=== PATIENT | male | born 1975 | race Caucasian/White ===

== ENCOUNTER 2019-07-19 11:58 | Emergency (ER) | payer OTHER ==
[~2019-07-19] VITALS: Ht 177.8 cm; Wt 85.7 kg
[2019-07-19 12:01] VITALS: BP 123/74
--- NOTE | 2019-07-19 12:21 | NUR ---
44YO M C/O CHEST PAIN WHICH STARTED 10 DAYS AGO. PER PT, HE WAS ON THE AIRPLANE WHEN HE FELT 8/10 SQUEEZING PAIN IN THE MIDDLE OF HIS CHEST. PT UNABLE TO RECALL ANY OTHER SYMPTOMS AT THAT TIME. SINCE THAT INCIDENT, CP HAS BEEN ON AND OFF, WITH MILDER PAIN INTENSITY. PT WENT TO URGENT CARE TODAY WHERE ABNORMAL EKG WAS NOTED, HENCE SENT TO ER. PT RESTING COMFORTABLY IN BED. ERMD MADE AWARE. NO PMH NO MEDS NKA
[2019-07-19 13:24] LABS: BASOPHILS % (AUTO) 0.8 % (0.0-2.0); EOSINOPHILS # (AUTO) 0.2 K/uL (0-0.4); EOSINOPHILS % (AUTO) 2.7 % (0.0-4.0); HEMOGLOBIN 14.9 g/dL (12.0-18.0); LYMPHOCYTES # (AUTO) 1.4 K/uL (2.0-11.5); LYMPHOCYTES % (AUTO) 22.7 % (20.5-51.1); MEAN CORPUSCULAR HEMOGLOBIN 30 pg (27-31); MEAN CORPUSCULAR HGB CONC 34 g/dL (33-37); MEAN CORPUSCULAR VOLUME 89.1 fL (80-94); MONOCYTES # (AUTO) 0.5 K/uL (0.8-1.0); MONOCYTES % (AUTO) 8.1 % (1.7-9.3); NEUTROPHILS # (AUTO) 3.9 K/uL (1.8-7.7); NEUTROPHILS % (AUTO) 65.7 % (42.2-75.2); PLATELET COUNT (AUTO) 196 K/uL (140-450); RED BLOOD CELL COUNT(AUTO) 4.94 MIL/uL (4.20-6.10); RED CELL DISTRIBUTION WIDTH 13.6 % (11.6-13.7)
[2019-07-19 13:41] LABS: ANION GAP 8.6 (8-16); CARBON DIOXIDE 29.9 mmol/L (21-32); CREATININE 1.3 mg/dL (0.6-1.3); POTASSIUM 4.5 mmol/L (3.5-5.1); TOTAL BILIRUBIN 0.7 mg/dL (0.0-1.0)
[2019-07-19 14:04] LABS: ALBUMIN 3.6 g/dL (3.4-5.0)
[2019-07-19 14:38] VITALS: BP 121/70
== END 2019-07-19 14:39 | disposition home or self-care (01) ==
LOC: MED 11:58
DX: R07.89 Other chest pain (principal)
CPT/HCPCS: 36415; 71045; 80053; 83690; 83880; 84484; 85025; 93005; 99285; Q0092

== ENCOUNTER 2019-07-25 08:03 | Inpatient (IN) | payer OTHER ==
[~2019-07-25] VITALS: Ht 182.9 cm; Wt 85.3 kg
--- NOTE | 2019-07-25 08:15 | NUR ---
PT AMBULATED TO ER BED 7
[2019-07-25 08:17] VITALS: BP 143/93
--- NOTE | 2019-07-25 08:21 | NUR ---
44 Y/O MALE C/O CHEST PAIN RADIATING TO BACK AND ARMS X 45 MIN. STATES NAUSEA, DENIES V/D. 8/10 PRESSURE AT THIS TIME. DENIES SOB. STATES HE WAS SEEN IN ER LAST WEEK FOR SAME CHEST PAIN, WAS GIVEN MEDICATION FOR ACID REFLUX, HAS BEEN TAKING MEDICATION WITH NO RELIEF. RR EVEN AND UNLABORED. PT PLACED ON MONITOR. VSS. MEDHX: DENIES ALLERGIES: NKA
[2019-07-25] MEDS ORDERED: NITROGLYCERIN 2% 1 GM PKT TP ONE ×2 (08:30)
[2019-07-25] MEDS ORDERED: MORPHINE SULFATE 2 MG/ML SYR IVP ONE (08:30)
[2019-07-25] MEDS ORDERED: METOPROLOL 25 MG TAB PO ONE (08:30)
[2019-07-25] MEDS ORDERED: ASPIRIN 325 MG TAB PO ONE (08:30)
[2019-07-25] MEDS ORDERED: FAMOTIDINE 20 MG/2 ML VIAL IVP ONE (08:30)
[2019-07-25] MEDS ORDERED: LORazepam 2 MG/ML VIAL IVP ONE (08:30)
--- NOTE | 2019-07-25 08:33 | NUR ---
ERMD BEDSIDE EVALUATING PT
--- NOTE | 2019-07-25 08:46 | NUR ---
XRAY AT BEDSIDE
[2019-07-25 09:06] LABS: BASOPHILS % (AUTO) 0.4 % (0.0-2.0); EOSINOPHILS # (AUTO) 0.1 K/uL (0-0.4); EOSINOPHILS % (AUTO) 0.7 % (0.0-4.0); HEMATOCRIT 46.7 % (36-52); HEMOGLOBIN 16.2 g/dL (12.0-18.0); LYMPHOCYTES # (AUTO) 1.1 K/uL (2.0-11.5); LYMPHOCYTES % (AUTO) 13.6 % (20.5-51.1); MEAN CORPUSCULAR HEMOGLOBIN 31 pg (27-31); MEAN CORPUSCULAR HGB CONC 35 g/dL (33-37); MEAN CORPUSCULAR VOLUME 89.1 fL (80-94); MONOCYTES # (AUTO) 0.7 K/uL (0.8-1.0); MONOCYTES % (AUTO) 8.7 % (1.7-9.3); NEUTROPHILS # (AUTO) 6.2 K/uL (1.8-7.7); NEUTROPHILS % (AUTO) 76.6 % (42.2-75.2); PLATELET COUNT (AUTO) 203 K/uL (140-450); RED BLOOD CELL COUNT(AUTO) 5.24 MIL/uL (4.20-6.10); RED CELL DISTRIBUTION WIDTH 13.7 % (11.6-13.7); WHITE BLOOD COUNT (AUTO) 8.1 K/uL (4.8-10.8)
[2019-07-25 09:29] LABS: PROTHROMBIN TIME 11.1 secs (10.8-13.4)
[2019-07-25 09:30] LABS: MAGNESIUM 1.7 mg/dL (1.8-2.4)
[2019-07-25 09:32] LABS: ALBUMIN 4.1 g/dL (3.4-5.0); ANION GAP 9.7 (8-16); CARBON DIOXIDE 29.6 mmol/L (21-32); CREATININE 1.1 mg/dL (0.6-1.3); POTASSIUM 4.3 mmol/L (3.5-5.1); TOTAL BILIRUBIN 0.6 mg/dL (0.0-1.0)
--- NOTE | 2019-07-25 09:44 | NUR ---
PT STATES UNABLE TO GIVE URINE SAMPLE AT THIS TIME. RESTING WITH EYES CLOSED, AROUSABLE TO NAME, REMAINS ON MONITOR. WILL CONTINUE TO MONITOR.
[2019-07-25 09:47] LABS: D-DIMER < 100 ng/ml (0-400)
[2019-07-25] MEDS ORDERED: ONDANSETRON 4 MG/2 ML VIAL IVP PRN (10:55)
[2019-07-25] MEDS ORDERED: ACETAMINOPHEN 325 MG TAB PO PRN (10:55)
[2019-07-25] MEDS ORDERED: NITROGLYCERIN 0.4 MG TAB SL PRN (11:05)
[2019-07-25 11:15] LABS: OPIATE, URINE POSITIVE ng/mL (NEG <=2000)
[2019-07-25 11:16] LABS: BARBITURATE, URINE NEGATIVE ng/ml (NEG <=200); BENZODIAZEPINE, URINE POSITIVE ng/mL (NEG <=200); CANNABINOID, URINE NEGATIVE ng/mL (NEG <=50); COCAINE, URINE NEGATIVE ng/mL (NEG <=300); PHENCYCLIDINE SCREEN,URINE NEGATIVE ng/mL (NEG <=25)
[2019-07-25] MEDS: NACL 0.9% 1,000 ML IV SCH (11:20)
[2019-07-25] MEDS ORDERED: MAGNESIUM OXIDE 400 MG TAB PO SCH (11:30)
[2019-07-25 11:59] LABS: FREE T4 (FREE THYROXINE) 0.98 ng/dL (0.76-1.46); PHOSPHORUS 2.3 mg/dL (2.5-4.9); THYROID STIMULATING HORMONE 1.74 uIU/mL (0.34-3.74)
--- NOTE | 2019-07-25 12:00 | NUR ---
PATIENT SITTING UPRIGHT R/R EQUAL, AND UNLABORED, CALM AND PLEASANT. WILL CONTINUE TO MONITOR.
--- NOTE | 2019-07-25 13:00 | NUR ---
PT SITTING UPRIGHT AWAKE AND ALERT ON CELLPHONE. RR EVEN AND UNLABORED. VSS. WILL CONTINUE TO MONITOR
--- NOTE | 2019-07-25 13:09 | NUR ---
PT ABLE TO AMBULATE TO BATHROOM. VSS. ALL NEEDS MET AT THIS TIME.
--- NOTE | 2019-07-25 13:40 | NUR ---
PT AWAKE AND RESTING ON BED. DENIED PAIN, SOB, AND DIZZINESS. NO SIGNS OF DISTRESS NOTED. TELE MONITOR ATTACHED. SAFETY MEASURES IN PLACE. Addendum: 07/25/19 at 1916 by Alexandra Todd RN WRONG TIME.
[2019-07-25 13:55] VITALS: BP 114/72
--- NOTE | 2019-07-25 13:55 | NUR ---
Patient will be admitted to care of [facility]. Admited to TELE. Will go to room 124A. Belongings list completed. Report to HEMANTH ALBERTS.
--- NOTE | 2019-07-25 13:55 | NUR ---
PT ARRIVED UNIT VIA GURNEY. PT IS AAOX4. RESPIRATION EVEN AND UNLABORED ON 3LPM VIA [place]. DENIED PAIN, SOB, AND DIZZINESS. NO SIGNS OF DISTRESS NOTED. IV ON RAC 22G, AND LAC 20, CLEAN AND INTACT, RAC INFUSING PER MD ORDER 10 ML/HR OF NS. SKIN CLEAN AND DRY. PT IS CONTINENT AND ABLE TO AMBULATE WITH STEADY GAIT. VITAL SIGNS TAKEN AND MRSA NARES COLLECTED. EXPLAINED TO PT THAT URINE SAMPLE IS NEEDED AND CUP PROVIDED. ORIENTED PT TO THE ROOM, INSTRUCTED PT ON HOW TO USE THE CALL LIGHT, LIGHTS, BED REMOTE, TV, BATHROOM, PT VERBALIZED UNDERSTANDING. PT IS SITTING UP ON BED RESTING. TELE MONITOR ATTACHED. SAFETY MEASURES IN PLACE. INSTRUCTED PT TO USE THE CALL LIGHT FOR ANY ASSISTANCE AND PT AWARE.
--- NOTE | 2019-07-25 15:40 | NUR ---
PT AWAKE AND RESTING ON BED. DENIED PAIN, SOB, AND DIZZINESS. NO SIGNS OF DISTRESS NOTED. TELE MONITOR ATTACHED. SAFETY MEASURES IN PLACE.
[2019-07-25 16:00] VITALS: BP 107/66
--- NOTE | 2019-07-25 17:00 | NUR ---
PT COMPLAINED THAT HE HAS MILD HEADACHE LIKE 2/10, ADMINISTERED ACETAMINOPHEN PER MD ORDER, MED EDUCATION PROVIDED AND PT TOLERATED WELL. NO SIGNS OF DISTRESS NOTED. TELE MONITOR ATTACHED. SAFETY MEASURES IN PLACE. INSTRUCTED PT TO USE THE CALL LIGHT FOR ANY ASSISTANCE AND PT AWARE.
--- NOTE | 2019-07-25 19:15 | NUR ---
ENDORSED PT AT BEDSIDE TO STRETCHER LEVELER OPERATOR NURSE BERTHA FOR CONTINUITY OF CARE. PT IS AWAKE AND RESTING ON BED AT THIS TIME. NO SIGNS OF DISTRESS NOTED. TELE MONITOR ATTACHED. PT IS IN STABLE CONDITION. SAFETY MEASURES IN PLACE. URINE SAMPLE COLLECTED IN ER.
--- NOTE | 2019-07-25 19:45 | NUR ---
A/A/O X4. IVF NS @ 10ML/HR INFUSING WELL C/O H/A .EXPLAINED IT'S TOO SOON TO HAVE ANOTHER DOSE;VERBALIZED UNDERSTANDING OF THE EXPLANATION GIVEN.
[2019-07-25 20:00] VITALS: BP 92/55
[2019-07-25] MEDS: METOPROLOL 25 MG TAB PO SCH (21:00)
[2019-07-25] MEDS ORDERED: ATORVASTATIN 20 MG TAB PO SCH (21:00)
[2019-07-25] MEDS: DOCUSATE SODIUM 100 MG GELCAP PO SCH (21:04)
[2019-07-25 21:54] LABS: APPEARANCE,URINE CLEAR (CLEAR); BILIRUBIN,URINE NEGATIVE (NEGATIVE); BLOOD, URINE NEGATIVE (NEGATIVE); COLOR,URINE YELLOW (YELLOW); LEUKOCYTE ESTERASE ,URINE NEGATIVE (NEGATIVE); NITRITE, URINE NEGATIVE (NEGATIVE); UGLUCOSE NEGATIVE (NEGATIVE)
--- NOTE | 2019-07-25 22:00 | NUR ---
RESTING COMFORTABLY IN NO ACUTE DISTRESS.
[2019-07-26] VITALS: BP 110/60
--- NOTE | 2019-07-26 | NUR ---
V/S/S AFEBRILE. TELE SHOWED SB RATE 57.
--- NOTE | 2019-07-26 02:40 | NUR ---
OOB TO THE BR & BACK TO BED.
--- NOTE | 2019-07-26 03:15 | NUR ---
C/O SQUEEZING CP SCALE5/10. BP111/75,OK 53.@ [id number] NITROSTAT ISSAC ADM.
--- NOTE | 2019-07-26 03:28 | NUR ---
PER PT CP STILL PERSIST POST NTG SL BUT DECREASED TO SCALE 1-2.
[2019-07-26 04:00] VITALS: BP 90/60
--- NOTE | 2019-07-26 06:00 | NUR ---
RESTING COMFORTABLY IN NO ACUTE DISTRESS.CALL LIGHT WITHIN REACH.
[2019-07-26 06:31] LABS: ANION GAP 12.1 (8-16); POTASSIUM 4.1 mmol/L (3.5-5.1)
[2019-07-26 06:38] LABS: MAGNESIUM 1.7 mg/dL (1.8-2.4); PHOSPHORUS 3.1 mg/dL (2.5-4.9)
--- NOTE | 2019-07-26 06:42 | NUR ---
ENDORSED IN NO ACUTE DISTRESS. SAFETY MAINTAINED.CALL LIGHT WITHIN REACH.
[2019-07-26 06:56] LABS: BASOPHILS % (AUTO) 0.2 % (0.0-2.0); EOSINOPHILS # (AUTO) 0.2 K/uL (0-0.4); EOSINOPHILS % (AUTO) 1.9 % (0.0-4.0); HEMATOCRIT 43.7 % (36-52); HEMOGLOBIN 14.8 g/dL (12.0-18.0); LYMPHOCYTES # (AUTO) 1.6 K/uL (2.0-11.5); LYMPHOCYTES % (AUTO) 15.9 % (20.5-51.1); MEAN CORPUSCULAR HEMOGLOBIN 31 pg (27-31); MEAN CORPUSCULAR HGB CONC 34 g/dL (33-37); MEAN CORPUSCULAR VOLUME 90.2 fL (80-94); MONOCYTES # (AUTO) 0.8 K/uL (0.8-1.0); MONOCYTES % (AUTO) 8.3 % (1.7-9.3); NEUTROPHILS # (AUTO) 7.3 K/uL (1.8-7.7); NEUTROPHILS % (AUTO) 73.7 % (42.2-75.2); PLATELET COUNT (AUTO) 175 K/uL (140-450); RED BLOOD CELL COUNT(AUTO) 4.84 MIL/uL (4.20-6.10); RED CELL DISTRIBUTION WIDTH 13.7 % (11.6-13.7); WHITE BLOOD COUNT (AUTO) 9.9 K/uL (4.8-10.8)
[2019-07-26 07:19] LABS: CHOL/HDL RATIO 3.4 (1-4.5)
[2019-07-26 08:00] VITALS: BP 100/70
--- NOTE | 2019-07-26 08:53 | NUR ---
PATIENT HAS BEEN SCREENED AND CATEGORIZED MODERATE NUTRITION RISK. PATIENT WILL BE SEEN WITHIN 3-5 DAYS OF ADMISSION. 07/28/19 07/30/[address]
[2019-07-26] MEDS ORDERED: ASPIRIN 81 MG TAB.CHEW PO SCH (09:00)
[2019-07-26] MEDS ORDERED: LISINOPRIL 5 MG TAB PO SCH (09:00)
[2019-07-26] MEDS: METOPROLOL 25 MG TAB PO SCH (09:02)
[2019-07-26] MEDS: DOCUSATE SODIUM 100 MG GELCAP PO SCH (09:02)
--- NOTE | 2019-07-26 09:16 | NUR ---
DC PLANN[age] YRS OLD MALE PATIENT WAS ADMITTED FROM HOME WITH A DX OF CHEST PAIN R/O ACS. PT HAS NO MEDICAL HISTORY. STARTED ON ACS MEDS, ECHO PENDING, CARDIOLOGY CONSULTED WITH DR MONIQUE , ORDERED STRESS TEST , DC PLAN PER STRESS TEST RESULT, CM TO FOLLOW.
[2019-07-26] MEDS ORDERED: PANTOPRAZOLE 40 MG TABEC PO SCH (10:15)
[2019-07-26] MEDS: NACL 0.9% 1,000 ML IV SCH (10:54)
--- NOTE | 2019-07-26 11:38 | NUR ---
[employer] TECH CALLED TO MAKE SURE PATIENT WILL BE NPO PAST 12 M- NO CAFFEINE AND HOLD BETA BLOCKERS- WILL INFORM PATIENT AND ENDORSE TO PM SHIFT
--- NOTE | 2019-07-26 11:41 | NUR ---
PATIENT APPROACHED ME TO DISCUSS THE FACT THAT [employer] WILL NO COVER TEST HERE- REQUESTING TEST BE CANCELED AND FOR A RECOMMENDATION/ OR PAPERWORK PROVING THAT NEEDS THE TEST ONCE HE ARRIVES BACK IN BILL- WILL RESEARCH REPORT AND RECORD
[2019-07-26 12:00] VITALS: BP 109/65
--- NOTE | 2019-07-26 12:00 | NUR ---
PATIENT RESTING IN ROOM - AMBULATORY- VITALS STABLE - NO COMPLAINTS OF PAIN - QUESTIONS IN REGARDS TO THE DISCHARGING AND RETURNING TO [place]- SAFETY PRECAUTIONS IN PLACE- PATIENT AMBULATING IN ROOM AND HALLWAY- TOLERATING DIET- URINATING- WILL CONTINUE TO MONITOR REPORT AND RECORD
[2019-07-26] MEDS ORDERED: PANT40EC28 PO (13:42)
--- NOTE | 2019-07-26 13:50 | NUR ---
PATIENT PREFERS TO RECEIVE VACCINATION WITH PRIMARY CARE DOCTOR WITH FOLLOW UP APPOINTMENT
[2019-07-26 15:18] VITALS: BP 109/65
--- NOTE | 2019-07-26 15:41 | NUR ---
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
== END 2019-07-26 15:55 | disposition home or self-care (01) | DRG 392 ==
LOC: MED 08:03 → MTU 13:45
PROVIDERS: ADMIT General Practice; ATTEND General Practice
DX: K21.9 Gastro-esophageal reflux disease without esophagitis (principal); E83.42 Hypomagnesemia
CPT/HCPCS: 36415; 71045; 80048; 80053; 80305; 81003; 82150; 82550; 83036; 83690; 83735; 83880; 84100; 84439; 84443; 84484; 85025; 85379; 85610; 85730; 86140; 87081; 93005; 96374; 96375; 99285; G0482; J1644; J2060; J2270; J3490; J7030; Q0092